=== PATIENT | male | born 1970 | race African-American/Black ===

== ENCOUNTER 2018-12-19 22:20 | Emergency (ER) | payer OTHER ==
[~2018-12-19] VITALS: Ht 195.6 cm; Wt 135.4 kg
[2018-12-19 22:27] VITALS: BP 154/97; Ht 195.6 cm; Wt 135.4 kg
== END 2018-12-19 23:12 | disposition home or self-care (01) ==
LOC: ED 22:20
DX: K12.0 Recurrent oral aphthae (principal); I10 Essential (primary) hypertension